=== PATIENT | female | born 1955 | race Caucasian/White ===

== ENCOUNTER 2022-10-21 08:20 | Day surgery (SDC) | payer OTHER ==
[2022-10-15 16:12] LABS: CLARITY,URINE CLEAR (Clear); COLOR,URINE YELLOW (Yellow); GLUCOSE, URINE NEGATIVE (Neg); KETONES,URINE NEGATIVE (Neg); LEUKOCYTE ESTERASE ,URINE NEGATIVE (Neg); NITRITES, URINE NEGATIVE (Neg); OCCULT BLOOD,URINE NEGATIVE (Neg); PROTEIN,URINE NEGATIVE (Neg); UROBILINOGEN,URINE 0.2 E.U/dL (0.2-1.0)
[2022-10-15 16:14] LABS: BASOPHILS # (AUTO) 0.1 X10'3 (0-0.2); EOSINOPHILS # (AUTO) 0.1 X10'3 (0-0.9); EOSINOPHILS % (AUTO) 0.6 % (0-6); MEAN PLATELET VOLUME 7.4 FL (7.4-10.4); MONOCYTES # (AUTO) 0.4 X10'3 (0-0.9)
[2022-10-15 16:15] LABS: UA COLLECTION TYPE CLN CATCH MIDSTREAM
[2022-10-15 16:16] LABS: BASOPHILS % (AUTO) 0.8 % (0-1); LYMPHOCYTES # (AUTO) 11.5 X10'3 (1.1-4.8); LYMPHOCYTES % (AUTO) 71.5 % (21-51); MEAN CORPUSCULAR HEMOGLOBIN 29.7 PG (27.0-31.0); MEAN CORPUSCULAR HGB CONC 33.1 g/dL (33.0-36.5); MEAN CORPUSCULAR VOLUME 89.6 FL (78-98); MONOCYTES % (AUTO) 2.5 % (2-12); NEUTROPHILS % (AUTO) 24.6 % (42-75); PRE OP HEMATOCRIT 41.3 % (35.0-45.0); PRE OP HEMOGLOBIN 13.7 g/dL (12.0-16.0); PRE OP PLATELET COUNT 304 X10'3 (140-440); RED BLOOD COUNT 4.61 X10'6 (4.20-5.60); RED CELL DISTRIBUTION WIDTH 13.5 % (11.5-14.5)
[2022-10-15 16:25] LABS: ALBUMIN 4.3 G/DL (3.4-5.0); ALBUMIN/GLOBULIN RATIO 1.5 (1.1-1.5); ALKALINE PHOSPHATASE 73 IU/L (46-116); BLOOD UREA NITROGEN 14 MG/DL (7-18); CALCIUM 9.5 MG/DL (8.5-10.1); CHLORIDE 105 MMOL/L (99-107); CREATININE 0.56 MG/DL (0.40-0.90); PRE OP ALT 35 U/L (30-65); PRE OP ANION GAP 7 (8-16); PRE OP AST 20 U/L (10-37); PRE OP BILIRUB, TOTAL 0.4 MG/DL (0.0-1.0); PRE OP GLUCOSE 96 MG/DL (70-104); PRE OP SODIUM 140 MMOL/L (135-145); TOTAL CARBON DIOXIDE 28.3 MMOL/L (24-32); TOTAL PROTEIN 7.1 G/DL (6.4-8.2); eGFR > 90 ML/MIN
[2022-10-15 17:06] LABS: TOTAL CELLS COUNTED 100
[2022-10-15 17:09] LABS: PLATELET ESTIMATE NORMAL; SMUDGE CELLS 2+
[2022-10-21] VITALS (12 sets, daily range): BP systolic 129–160; BP diastolic 77–90
[~2022-10-21] VITALS: Ht 162.6 cm; Wt 68.0 kg
[~2022-10-21 08:20] MED LIST: ATOR20TA66 PO; DENO60DI SUBCUT; LIDO700A32 TOP; NORT10CA2 PO; OMEP20CA16 PO; clindamycin-Cleocin 900mg/D5W 50 ML IV ONE; famotidine 20mg tablet PO ONE
[2022-10-21] MEDS: ringers solution, lacted 1,000 ML IV SCH ×2 (08:57→12:35)
[2022-10-21] MEDS ORDERED: BUPIVAcaine/PF 5 mg/ml 10ml ONE (10:21)
[2022-10-21] MEDS ORDERED: sevoflurane 250ml liquid IH ONE (10:38)
[2022-10-21] MEDS ORDERED: fentaNYL/PF 50MCG/1 ML 2ML syringe ONE (10:44)
[2022-10-21] MEDS ORDERED: midazolam 1 mg/ML 2ml injection ONE (10:45)
[2022-10-21] MEDS ORDERED: propofol inj 20 ML IV ONE (10:46)
[2022-10-21] MEDS ORDERED: rocuronium 10mg/ml inj IV ONE (10:47)
[2022-10-21] MEDS ORDERED: ondansetron/PF 4mg/2ml inj ONE (11:02)
[2022-10-21] MEDS ORDERED: dexamethasone sod phosphate 4mg/ml inj. ONE (11:02)
[2022-10-21] MEDS ORDERED: ringers solution, lacted 1,000 ML IV SCH (11:25)
[2022-10-21] MEDS ORDERED: ondansetron/PF 4mg/2ml inj IV PRN (11:25)
[2022-10-21] MEDS ORDERED: morphine 4 MG/ML inj SYRINge IV PRN (11:25)
[2022-10-21] MEDS ORDERED: proCHLORperazine 10 MG/2 ml inj IV PRN (11:25)
[2022-10-21] MEDS ORDERED: meperidine/PF 25mg/ml syringe IV PRN ×3 (11:25)
[2022-10-21] MEDS ORDERED: morphine 2 MG/ML inj. syringe IV PRN (11:25)
[2022-10-21] MEDS ORDERED: sugammadex 200mg/2ml injection IV ONE (11:28)
--- NOTE | 2022-10-21 11:46 | NUR ---
Received from OR via [facility], accompanied by Anesthesiologist and report given by [facility] Anesthesiologist. PATIENT WAKING UP, DENIES PAIN, V/S WNL, PIV 20G RIGHT FOREARM, DERMABONDED LAPS SITES CLOSED C/D/I TO ABDOMEN. Addendum: 10/21/22 at 1215 by Alek Farias RN Amended: Links added.
--- NOTE | 2022-10-21 13:16 | NUR ---
ALL DISCHARGE CRITERIA HAS BEEN MET. VSS, PAIN AT A TOLERABLE LEVEL, VOIDING AND ABLE TO SAFELY AMBULATE AND TRANSFER SELF. IV TAKEN OUT WITHOUT ANY COMPLICATIONS. ALL DISCHARGE INSTRUCTIONS COVERED WITH PATIENT AND ALL QUESTIONS ANSWERED. PATIENT TAKEN OUT VIA WHEELCHAIR WITH ALL BELONGINGS TO PERSONAL VEHICLE WHERE FAMILY DROVE PATIENT HOME. Addendum: 10/21/22 at 1335 by Alek Farias RN Amended: Links added.
== END 2022-10-21 13:16 | disposition home or self-care (01) ==
LOC: PAS 08:20 → EDBD 13:30
PROVIDERS: ATTEND Surgery
DX: K80.10 Calculus of gallbladder with chronic cholecystitis without obstruction (principal); K82.8 Other specified diseases of gallbladder; M81.0 Age-related osteoporosis without current pathological fracture; M19.90 Unspecified osteoarthritis, unspecified site; K21.9 Gastro-esophageal reflux disease without esophagitis; F41.9 Anxiety disorder, unspecified; B19.20 Unspecified viral hepatitis C without hepatic coma; F17.210 Nicotine dependence, cigarettes, uncomplicated; Z88.0 Allergy status to penicillin; Z88.8 Allergy status to other drugs, medicaments and biological substances; Z98.51 Tubal ligation status; Z98.890 Other specified postprocedural states; Z79.899 Other long term (current) drug therapy
CPT/HCPCS: 36415; 47562; 80053; 81003; 82948; 85025; 93005; J1100; J2175; J2250; J2405; J2704; J3010; J3490; J7030; J7120; Z7506; Z7508; Z7512; 85007; A4215; A4618; A7000